=== PATIENT | female | born 1995 | race American Indian/Alaskan Native ===

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

== ENCOUNTER 2017-06-02 14:34 | Emergency (ER) | payer OTHER ==
[2017-06-02 15:49] VITALS: BMI 23.0
[2017-06-02 15:56] VITALS: BP 100/66; PULSE 82; TEMP 98.1; O2SAT 99
[2017-06-02] MEDS ORDERED: Sodium Chloride 0.9% 1,000 ML IV STA (15:59)
[2017-06-02 16:01] VITALS: RESP 18
[2017-06-02 16:11] LABS: PH,URINE 6.5 (4.7-8.0); URINE BILIRUBIN SMALL (NEGATIVE); URINE BLOOD SMALL (NEGATIVE); URINE GLUCOSE (UA) NEGATIVE (NEGATIVE); URINE KETONE 15 mg/dL (NEGATIVE); URINE LEUKOCYTE ESTERASE NEGATIVE Leu/uL (NEGATIVE); URINE PROTEIN 30 mg/dL (<30 mg/dL)
[2017-06-02 16:12] LABS: URINE APPEARANCE TURBID (CLEAR); URINE COLOR YELLOW (YELLOW)
[2017-06-02 16:23] LABS: URINE EPITHELIAL CELLS MANY /hpf (0-5); URINE RBC 0 - 2 /hpf (0-2); URINE WBC 0 - 2 /hpf (0-6)
[2017-06-02 16:24] LABS: BASO # 0.04 K/mm3 (0.0-2.0); BASO % 0.4 % (0.0-3.0); EOS # 0.1 (0.0-0.7); EOS % 0.6 % (1.5-5.0); GRAN # 7.06 (1.4-6.5); GRAN % 71.2 % (50.0-68.0); HEMATOCRIT 42.1 % (36.0-48.0); LYMPH # 2.2 (1.2-3.4); LYMPH % 22.2 % (22.0-35.0); MEAN CELL VOLUME 90.5 fl (80.0-105.0); MEAN CORPUSCULAR HEMOGLOBIN 31.6 pg (25.0-35.0); MEAN CORPUSCULAR HGB CONC 34.9 g/dl (31.0-37.0); MEAN PLATELET VOLUME 9.7 fl (7.0-11.0); MONO # 0.6 (0.1-0.6); MONO % 5.6 % (1.0-6.0); RED CELL DISTRIBUTION WIDTH 13.1 % (11.5-14.5); WHITE BLOOD COUNT 9.9 10^3/ul (4.5-11.0)
[2017-06-02 16:54] LABS: ALB/GLOB RATIO 1.2 (1.1-1.8); ALKALINE PHOSPHATASE 92 U/L (38-126); ALT/SGPT 20 U/L (7-56); AST/SGOT 19 U/L (14-36); BILIRUBIN,TOTAL 0.8 mg/dL (0.2-1.3); BLOOD UREA NITROGEN 9 mg/dL (7-21); CALCIUM 9.9 mg/dL (8.4-10.5); CARBON DIOXIDE 29 mmol/L (21-33); CHLORIDE 104 mmol/L (98-107); GFR AFRICAN-AMERICAN > 60; GLUCOSE,RANDOM 79 mg/dL (70-110); LIPASE 76 U/L (23-300); POTASSIUM 3.8 mmol/L (3.6-5.0); SODIUM 141 mmol/L (132-148); TOTAL PROTEIN 7.9 g/dL (5.8-8.3)
--- NOTE | 2017-06-02 17:43 | ED PDOC ---
Arrival/HPI - General Chief Complaint: GI Problem Time Seen by Provider: 06/02/17 14:38 Historian: Patient - History of Present Illness Narrative History of Present Illness (Text): 06/02/17 17:41 A 22 year female, whose past medical history includes gastritis, presents to the emergency department for 1 episode of vomiting, which occurred over the last 3 days. The patient notes mild nausea and a slightly decreased appetite. She denies any abdominal pain, constipation, dysuria, hematuria, vaginal discharge, vaginal bleeding, or any other complaints at this time. The patient admits to having an elective 3 months ago and has not had her menstrual cycle for 5 months. Time/Duration: < week (x 3 days ) Symptom Onset: Gradual Symptom Course: Resolved Activities at Onset: Light Context: Home Past Medical History - Provider Review Nursing Documentation Reviewed: Yes - Past History Past History: No Previous - Infectious Disease Hx of Infectious Diseases: None - Tetanus Immunization Tetanus Immunization: Up to Date - Reproductive Menopause: No - Cardiac Hx Cardiac Disorders: No - Psychiatric Hx Psychophysiologic Disorder: No Hx Substance Use: No - Past Surgical History Past Surgical History: No Previous - Anesthesia Hx Anesthesia: No Hx Anesthesia Reactions: No Hx Malignant Hyperthermia: No Family/Social History - Physician Review Nursing Documentation Reviewed: Yes Family/Social History: No Known Family HX Smoking Status: Never Smoked Hx Alcohol Use: No Hx Substance Use: No Hx Substance Use Treatment: No Allergies/Home Meds Allergies/Adverse Reactions: Allergies No Known Allergies Allergy (Verified 11/19/16 12:21) Review of Systems - Physician Review All systems were reviewed & negative as marked: Yes - Review of Systems Gastrointestinal: Nausea, Vomiting, Appetite Changes. absent: Constipation Genitourinary Female: absent: Dysuria, Hematuria, Vaginal Bleeding, Vaginal Discharge Physical Exam Vital Signs Reviewed: Yes Vital Signs Temp Pulse Resp BP Pulse Ox 06/02/17 16:01 98.1 F 82 18 100/66 99 06/02/17 15:49 98.1 F 82 16 100/66 99 Temperature: Afebrile Blood Pressure: Normal Pulse: Regular Respiratory Rate: Normal Appearance: Positive for: Well-Appearing, Non-Toxic, Comfortable Pain Distress: None Mental Status: Positive for: Alert and Oriented X 3 - Systems Exam Head: Present: Atraumatic, Normocephalic Pupils: Present: PERRL Extroacular Muscles: Present: EOMI Conjunctiva: Present: Normal Mouth: Present: Moist Mucous Membranes Neck: Present: Normal Range of Motion Respiratory/Chest: Present: Clear to Auscultation, Good Air Exchange. No: Respiratory Distress, Accessory Muscle Use Cardiovascular: Present: Regular Rate and Rhythm, Normal S1, S2. No: Murmurs Abdomen: Present: Normal Bowel Sounds. No: Tenderness, Distention, Peritoneal Signs Back: Present: Normal Inspection Upper Extremity: Present: Normal Inspection. No: Cyanosis, Edema Lower Extremity: Present: Normal Inspection. No: Edema Neurological: Present: GCS=15, CN II-XII Intact, Speech Normal Skin: Present: Warm, Dry, Normal Color. No: Rashes Psychiatric: Present: Alert, Oriented x 3, Normal Insight, Normal Concentration Medical Decision Making ED Course and Treatment: 06/02/17 17:42 Impression: A 22 year old female with mild nausea. Differential Diagnosis included but are not limited to: Plan: -- Urine Culture -- Pepcid, IV Fluids, Zofran -- Reassess and disposition Progress Notes: - Lab Interpretations Lab Results: 06/02/17 16:03 06/02/17 16:03 Lab Results 06/02/17 16:04: Urine Color Yellow, Urine Appearance Turbid, Urine pH 6.5, Ur Specific [place] 1.025, Urine Protein 30 H, Urine Glucose (UA) Negative, Urine Ketones 15 H, Urine Blood Small H, Urine Nitrate Negative, Urine Bilirubin Small H, Urine Urobilinogen 1.0 H, Ur Leukocyte Esterase Negative, Urine RBC 0 - 2, Urine WBC 0 - 2, Ur Epithelial Cells Many, Urine Other Mucus 06/02/17 16:03: Beta HCG, Quant < 2.39 06/02/17 16:03: Sodium 141, Potassium 3.8, Chloride 104, Carbon Dioxide 29, Anion Gap 12, BUN 9, Creatinine 0.8, Est GFR ( Amer) > 60, Est GFR (Non- Af Amer) > 60, Random Glucose 79, Calcium 9.9, Total Bilirubin 0.8, AST 19, ALT 20, Alkaline Phosphatase 92, Total Protein 7.9, Albumin 4.4, Globulin 3.6, Albumin/Globulin Ratio 1.2, Lipase 76 06/02/17 16:03: WBC 9.9, RBC 4.65, Hgb 14.7, Hct 42.1, MCV 90.5, MCH 31.6, MCHC 34.9, RDW 13.1, Plt Count 276, MPV 9.7, Gran % 71.2 H, Lymph % (Auto) 22.2, [place] % (Auto) 5.6, Eos % (Auto) 0.6 L, Baso % (Auto) 0.4, Gran # 7.06 H, Lymph # 2.2, [place] # 0.6, Eos # 0.1, Baso # 0.04 - Medication Orders Current Medication Orders: Discontinued Medications Famotidine (Pepcid) 20 mg IVP STAT STA Stop: 06/02/17 16:09 Last Admin: 06/02/17 16:34 Dose: 20 mg IVP Administration Document 06/02/17 16:34 SE (Rec: 06/02/17 16:34 CARO [id number]) Charges for Administration # of IVP Administrations 1 Sodium Chloride (Sodium Chloride 0.9%) 1,000 mls @ 1,000 mls/hr IV .Q1H STA Stop: 06/02/17 16:58 Last Admin: 06/02/17 16:14 Dose: 1,000 mls/hr eMAR Start Stop Document 06/02/17 16:14 SE (Rec: 06/02/17 16:14 CARO [id number]) Intravenous Solution Start Date 06/02/17 Start Time 16:14 Ondansetron HCl (Zofran Inj) 4 mg IVP STAT STA Stop: 06/02/17 16:09 Last Admin: 06/02/17 16:34 Dose: 4 mg IVP Administration Document 06/02/17 16:34 SE (Rec: 06/02/17 16:34 CARO [id number]) Charges for Administration # of IVP Administrations 1 - Scribe Statement The provider has reviewed the documentation as recorded by the Augustine Chung Provider Scribe Attestation: All medical record entries made by the Scribe were at my direction and personally dictated by me. I have reviewed the chart and agree that the record accurately reflects my personal performance of the history, physical exam, medical decision making, and the department course for this patient. I have also personally directed, reviewed, and agree with the discharge instructions and disposition. Disposition/Present on Arrival - Present on Arrival Any Indicators Present on Arrival: No History of DVT/PE: No History of Uncontrolled Diabetes: No Urinary Catheter: No History of Decub. Ulcer: No History Surgical Site Infection Following: None - Disposition Have Diagnosis and Disposition been Completed?: Yes Diagnosis: Gastritis Disposition: HOME/ ROUTINE Disposition Time: 17:00 Condition: IMPROVED Discharge Instructions (ExitCare): Gastritis (ED) Additional Instructions: Thank you for letting us take care of you today. The emergency medical care you received today was directed at your acute symptoms. If you were prescribed any medication, please fill it and take as directed. It may take several days for your symptoms to resolve. Return to the Emergency Department if your symptoms worsen, do not improve, or if you have any other problems. Please contact your doctor or call one of the physicians/clinics you have been referred to that are listed on the Patient Visit Information form that is included in your discharge packet. Bring any paperwork you were given at discharge with you along with any medications you are taking to your follow up visit. Our treatment cannot replace ongoing medical care by a primary care provider (PCP) outside of the emergency department. Thank you for allowing the [facility] team to be part of your care today. 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 Prescriptions: Ranitidine HCl [Zantac] 150 mg PO BID #20 tablet Referrals: Regina Stuart MD [Primary Care Provider] - Follow up with primary Forms: [employer] (Greek)
== END 2017-06-02 17:25 | disposition home or self-care (01) ==
LOC: ED 14:34
DX: K29.70 Gastritis, unspecified, without bleeding (principal)
CPT/HCPCS: 80053; 81001; 83690; 84702; 85025; 87086; 96374; 96375; 99284; J2405; J7040